=== PATIENT | female | born 1970 | race Caucasian/White ===

== ENCOUNTER → 2021-10-31 01:36 | Outpatient (CLI) | payer OTHER, SELFPAY ==
[2021-10-31 12:30] LABS: Influenza A QL RT-PCR Negative (Negative); Influenza B QL RT-PCR Negative (Negative); SARS-CoV-2 RNA PCR Negative
== END ==
PROVIDERS: PCP Family Medicine; Visit Provider Family Medicine
DX: J02.9 Acute pharyngitis, unspecified (principal); Z20.822 Contact with and (suspected) exposure to COVID-19
CPT/HCPCS: 87502; C9803; U0003; U0005

== ENCOUNTER 2022-06-22 08:38 | Emergency (ER) | payer OTHER, SELFPAY ==
--- NOTE | 2022-06-22 08:48 | ED.FEMALEGU ---
HPI - Female Genitourinary General Chief complaint: Urogenital-Female Stated complaint: UTI Time Seen by Provider: 06/22/22 08:48 Source: patient Mode of arrival: ambulatory Limitations: no limitations History of Present Illness HPI Narrative: Juliette is a 52-year-old female patient presenting to the clinic today with complaints of possible urinary tract infection x 2 days. She reports she is having some burning with urination and a hot feeling in her genital area. She denies any vaginal discharge. She did try to take Monistat off feel 1 day treatment yesterday but this did not help Related Data Home Medications Medication Instructions Recorded Confirmed cyanocobalamin (vitamin B-12) 1,000 mcg PO DAILY 05/28/21 06/22/22 1,000 mcg tablet Allergies Allergy/AdvReac Type Severity Reaction Status Date / Time No Known Allergies AdvReac Unknown Verified 06/22/22 08:39 NKFA Allergy Mild Other Uncoded 06/22/22 08:39 Review of Systems Review of Systems: Pertinent positives per HPI. Patient denies any fever, chills, rash, headache, visual changes, dizziness, cough, runny nose, sore throat, shortness of breath, chest pain, palpitations, nausea, vomiting, diarrhea, constipation, abdominal pain. [facility] Past Medical History Medical History Abnormal fasting glucose (~11/05/16) fasting glucose 106 on 11/05/2016 Acute non-recurrent maxillary sinusitis BMI 31.0-31.9,adult Chronic anxiety Chronic diarrhea chronic diarrhea after gallbladder removed Controlled diabetes mellitus (05/23/21) glucose 138 and hemoglobin A1c 6.7 on 05/23/2021. Glucose 94 with hemoglobin A1c 6.5 on 11/14/2021. COVID-19 (~01/08/21) Encounter for wellness examination in adult Gastro-esophageal reflux disease without esophagitis Mixed hyperlipidemia (~11/05/16) total cholesterol 263, triglycerides 251, HDL 47, LDL 166 on 11/05/2016. Total cholesterol 207, triglycerides 200, HDL 50, LDL 125 on 05/23/2021. Total cholesterol 230, HDL 54, triglycerides 248 and LDL 138 on 11/14/2021. Obesity (BMI 30.0-34.9) OCD (obsessive compulsive disorder) Pharyngitis (~10/28/21) Influenza and COVID negative on 10/31/2021. Umbilical hernia (~2020) small umbilical hernia on the right of midline UTI (urinary tract infection) Vitamin B12 deficiency anemia level low at 325 on 05/23/2021. Low at 340 on 11/14/2021. Vitamin D deficiency, unspecified 28.3 on 11/05/2016 Family History Family History Sibling Diabetes mellitus Patient's brother is in good health Mother Patient's mother is , Onset Age: 43 Carcinoma of colon, Onset Age: 43 Family history of malignant neoplasm of uterus, Onset Age: 43 Father Patient's father is in good health Grandparent Family history of emphysema, Onset Age: 78 Social History Social History Smoking status: Never smoker Alcohol intake: never Substance use: never Substance use type: does not use Comments At the time of my signature, I reviewed and agree with the nursing past medical, surgical, social, and family history. There is no relevant family history pertinent to the patient complaint. Exam Narrative: General: Well-developed, well nourished, in no apparent distress. Head: Normocephalic, atraumatic. Cardio: Regular rate and rhythm, s1 and s2 normal, no murmur appreciated. Resp: Clear to auscultation bilaterally, no rhonchi, rales, wheezing or rubs. Abdomen: Soft, pliable, bowel sounds present in all quadrants, non-tender to palpation, no organomegly, no CVAT tenderness. : Marianna MCINTOSH a bedside external vaginal exam performed- patient has a dry crusted lesion to the right upper labia- mildly tender to touch with mild redness without induration. Course Course Emergency Course: Portions o
[2022-06-22 08:55] VITALS: BP 153/82; PULSE 90; RESP 16; TEMP 37.2; O2SAT 99
== END 2022-06-22 09:19 | disposition home or self-care (01) ==
PROVIDERS: Emergency Provider Nurse Practitioner Family; PCP Family Medicine
DX: R30.0 Dysuria (principal); R81 Glycosuria; R31.9 Hematuria, unspecified; N90.89 Other specified noninflammatory disorders of vulva and perineum; E11.9 Type 2 diabetes mellitus without complications; Z86.16 Personal history of COVID-19; K21.9 Gastro-esophageal reflux disease without esophagitis; E78.2 Mixed hyperlipidemia; E66.9 Obesity, unspecified; Z68.29 Body mass index [BMI] 29.0-29.9, adult; E53.8 Deficiency of other specified B group vitamins; F42.9 Obsessive-compulsive disorder, unspecified; F41.9 Anxiety disorder, unspecified; Z79.84 Long term (current) use of oral hypoglycemic drugs
CPT/HCPCS: 81003; 87086; 87088; 99213; G0463

== ENCOUNTER 2022-08-07 08:06 | Emergency (ER) | payer OTHER, SELFPAY ==
--- NOTE | 2022-08-07 08:18 | ED.FEMALEGU ---
HPI - Female Genitourinary General Chief complaint: Urogenital-Female Stated complaint: UTI Time Seen by Provider: 08/07/22 08:18 Source: patient, RN notes reviewed and old records reviewed Mode of arrival: ambulatory Limitations: no limitations History of Present Illness HPI Narrative: 52-year-old female presents to the [facility] with concerns for a UTI. Patient states that she started with burning, urgency and frequency along with suprapubic pressure last night. Its she did an at-home UTI test and reports that it was positive Denies fevers, abdominal pain. No CVA tenderness MD elicited complaint: UTI Related Data Home Medications Medication Instructions Recorded Confirmed cyanocobalamin (vitamin B-12) 1,000 mcg PO DAILY 05/28/21 08/07/22 1,000 mcg tablet Allergies Allergy/AdvReac Type Severity Reaction Status Date / Time No Known Allergies AdvReac Unknown Verified 08/07/22 08:13 Review of Systems Review of Systems: All systems reviewed & are unremarkable except as noted in HPI and below Constitutional: Constitutional: Reports no additional constitutional complaints Eyes: Eyes: Reports no additional eye complaints ENT: Reports system reviewed and no additional complaints, except as documented Cardiovascular: Cardiovascular: Reports no additional cardiovascular complaints, Denies chest pain and Denies dyspnea Respiratory: Respiratory: Reports no additional respiratory complaints, Denies chest congestion, Denies cough and Denies dyspnea Gastrointestinal: Gastrointestinal: Reports no additional gastrointestinal complaints, Denies abdominal pain, Denies nausea and Denies vomiting Genitourinary: Genitourinary: Reports as per HPI and Reports dysuria Musculoskeletal: Musculoskeletal: Reports no additional musculoskeletal complaints Integumentary/Breasts: Skin/Breast: Reports system reviewed and no additional complaints, except as docu Neurologic: Reports system reviewed and no additional complaints, except as documented Psychiatric: Psychiatric: Reports no additional psychiatric complaints Allergic/Immunologic: Allergic/Immunologic: Reports no additional allergic/immunologic complaints PMFSH Past Medical History Medical History Abnormal fasting glucose (~11/05/16) fasting glucose 106 on 11/05/2016 Acute non-recurrent maxillary sinusitis BMI 31.0-31.9,adult Chronic anxiety Chronic diarrhea chronic diarrhea after gallbladder removed Controlled diabetes mellitus (05/23/21) glucose 138 and hemoglobin A1c 6.7 on 05/23/2021. Glucose 94 with hemoglobin A1c 6.5 on 11/14/2021. COVID-19 (~01/08/21) Encounter for wellness examination in adult Gastro-esophageal reflux disease without esophagitis Mixed hyperlipidemia (~11/05/16) total cholesterol 263, triglycerides 251, HDL 47, LDL 166 on 11/05/2016. Total cholesterol 207, triglycerides 200, HDL 50, LDL 125 on 05/23/2021. Total cholesterol 230, HDL 54, triglycerides 248 and LDL 138 on 11/14/2021. Obesity (BMI 30.0-34.9) OCD (obsessive compulsive disorder) Pharyngitis (~10/28/21) Influenza and COVID negative on 10/31/2021. Umbilical hernia (~2020) small umbilical hernia on the right of midline UTI (urinary tract infection) Vitamin B12 deficiency anemia level low at 325 on 05/23/2021. Low at 340 on 11/14/2021. Vitamin D deficiency, unspecified 28.3 on 11/05/2016 Family History Family History Sibling Diabetes mellitus Patient's brother is in good health Mother Patient's mother is , Onset Age: 43 Carcinoma of colon, Onset Age: 43 Family history of malignant neoplasm of uterus, Onset Age: 43 Father Patient's father is in good health Grandparent Family history of emphysema, Onset Age: 78 Social History Social History Smoking status: Never smoker
[2022-08-07 08:21] VITALS: BP 143/87; PULSE 89; RESP 16; TEMP 36.9; O2SAT 99
== END 2022-08-07 08:44 | disposition home or self-care (01) ==
PROVIDERS: Emergency Provider Nurse Practitioner; PCP Family Medicine
DX: N39.0 Urinary tract infection, site not specified (principal); E11.9 Type 2 diabetes mellitus without complications; K21.9 Gastro-esophageal reflux disease without esophagitis; E78.2 Mixed hyperlipidemia
CPT/HCPCS: 81003; 87077; 87086; 87186; 99213; G0463

== ENCOUNTER 2023-11-24 07:00 | Outpatient (NON) | payer OTHER, SELFPAY | END 2023-11-24 07:01 | disposition home or self-care (01) | LOC: ANHLAB 11-25 08:47 | PROVIDERS: PCP Family Medicine; Visit Provider Internal Medicine Gastroenterology | DX: Z12.11 Encounter for screening for malignant neoplasm of colon (principal) | CPT/HCPCS: 88305 ==

== ENCOUNTER 2023-11-24 07:55 | Day surgery (SDC) | payer OTHER, SELFPAY ==
[2023-11-03 10:18] VITALS: BMI 31.1
--- NOTE | 2023-11-24 08:12 | WPDANESEPP ---
Anes - Eval Pre Procedure Procedure: Operation Date: 11/24/23 09:30 Proposed Procedures p Screening Colonoscopy - Fernando Meredith MD Date/Time: 11/24/23 08:12 Pre Op Diagnosis: Neoplasm Screening Patient Data Age: 53 Gender: F Height: 1.7 m Weight: 91 kg Allergies Allergy/AdvReac Type Severity Reaction Status Date / Time No Known Allergies AdvReac Unknown Verified 11/24/23 08:12 Home Medications Medication Instructions Recorded Confirmed Type cyanocobalamin (vitamin B-12) 1,000 mcg PO DAILY 05/28/21 11/12/23 History 1,000 mcg tablet atorvastatin 10 mg tablet 10 mg PO DAILY #30 tabs 12/23/22 11/12/23 Rx metformin 500 mg tablet,extended 500 mg PO BID #180 tabs 12/23/22 11/12/23 Rx release 24 hr sertraline 100 mg tablet 100 mg PO DAILY #90 tabs 12/24/22 11/12/23 Rx Patient hx anesthesia problems: none Family hx anesthesia problems: none Results Review: All pre-operative results and documents have been reviewed as part of the pre-operative evaluation. [facility] Past Medical History Medical History Abnormal fasting glucose (~11/05/16) fasting glucose 106 on 11/05/2016 Acute non-recurrent maxillary sinusitis BMI 31.0-31.9,adult Breast cancer screening by mammogram normal mammogram 03/29/2023. Chronic anxiety Chronic diarrhea chronic diarrhea after gallbladder removed Controlled diabetes mellitus (05/23/21) glucose 138 and hemoglobin A1c 6.7 on 05/23/2021. Glucose 94 with hemoglobin A1c 6.5 on 11/14/2021. Glucose 120 with hemoglobin A1c 6.3 and microalbumin ratio normal at 3 on 12/17/2022. COVID-19 (~01/08/21) Encounter for wellness examination in adult Gastro-esophageal reflux disease without esophagitis Mixed hyperlipidemia (~11/05/16) total cholesterol 263, triglycerides 251, HDL 47, LDL 166 on 11/05/2016. Total cholesterol 207, triglycerides 200, HDL 50, LDL 125 on 05/23/2021. Total cholesterol 230, HDL 54, triglycerides 248 and LDL 138 on 11/14/2021. total cholesterol 269, HDL 58, triglycerides 294, LDL 166 with ratio 4.6 on 12/17/2022. Obesity (BMI 30.0-34.9) OCD (obsessive compulsive disorder) Pharyngitis (~10/28/21) Influenza and COVID negative on 10/31/2021. Umbilical hernia (~2020) small umbilical hernia on the right of midline UTI (urinary tract infection) Vitamin B12 deficiency anemia level low at 325 on 05/23/2021. Low at 340 on 11/14/2021. Level low at 379 with hemoglobin 14.5 on 12/17/2022. Vitamin D deficiency, unspecified 28.3 on 11/05/2016 Family History Family History Sibling Diabetes mellitus Patient's brother is in good health Mother Patient's mother is , Onset Age: 43 Carcinoma of colon, Onset Age: 43 Family history of malignant neoplasm of uterus, Onset Age: 43 Father Patient's father is in good health Grandparent Family history of emphysema, Onset Age: 78 Social History Social History (Updated 12/23/22 @ 15:21 by Kristina Prado MA) Smoking status: Never smoker Alcohol intake: never Substance use: never Substance use type: does not use Lack of Transportation: No Lack of Food: Never True Current Housing: I Have Housing Concerned About Future Housing: No Difficulty Paying Gas/Electric Bills: No Difficulty Paying for Meds: No Currently Unemployed: No Education: Bachelor's Degree Difficulty w/ Childcare or Family Care: No Living arrangements: with family Exam Day of Procedure 11/24/23 08:12 Patient weight: overweight
[2023-11-24 08:38] LABS: Glucose Point of Care 150 mg/dl (65-105)
--- NOTE | 2023-11-24 08:38 | PM.HPGS ---
History of Present Illness History of Present Illness Consent: Risks, benefits, and alternatives have been discussed and questions answered. Patient agrees to proceed with procedure. Chief complaint: Neoplasm Screening Narrative: Juliette Hancock is a 53 year old female presents for screening colonoscopy. Patient has current weight appetite bowel movements are normal. She attributes this to cholecystectomy. Significant her mother had pelvic tumor that involved the colon. Review of Systems Review of Systems: All systems reviewed & are unremarkable except as noted in HPI and below PMFSH Past Medical History Medical History Abnormal fasting glucose (~11/05/16) fasting glucose 106 on 11/05/2016 Acute non-recurrent maxillary sinusitis BMI 31.0-31.9,adult Breast cancer screening by mammogram normal mammogram 03/29/2023. Chronic anxiety Chronic diarrhea chronic diarrhea after gallbladder removed Controlled diabetes mellitus (05/23/21) glucose 138 and hemoglobin A1c 6.7 on 05/23/2021. Glucose 94 with hemoglobin A1c 6.5 on 11/14/2021. Glucose 120 with hemoglobin A1c 6.3 and microalbumin ratio normal at 3 on 12/17/2022. COVID-19 (~01/08/21) Encounter for wellness examination in adult Gastro-esophageal reflux disease without esophagitis Mixed hyperlipidemia (~11/05/16) total cholesterol 263, triglycerides 251, HDL 47, LDL 166 on 11/05/2016. Total cholesterol 207, triglycerides 200, HDL 50, LDL 125 on 05/23/2021. Total cholesterol 230, HDL 54, triglycerides 248 and LDL 138 on 11/14/2021. total cholesterol 269, HDL 58, triglycerides 294, LDL 166 with ratio 4.6 on 12/17/2022. Obesity (BMI 30.0-34.9) OCD (obsessive compulsive disorder) Pharyngitis (~10/28/21) Influenza and COVID negative on 10/31/2021. Umbilical hernia (~2020) small umbilical hernia on the right of midline UTI (urinary tract infection) Vitamin B12 deficiency anemia level low at 325 on 05/23/2021. Low at 340 on 11/14/2021. Level low at 379 with hemoglobin 14.5 on 12/17/2022. Vitamin D deficiency, unspecified 28.3 on 11/05/2016 Family History Family History Sibling Diabetes mellitus Patient's brother is in good health Mother Patient's mother is , Onset Age: 43 Carcinoma of colon, Onset Age: 43 Family history of malignant neoplasm of uterus, Onset Age: 43 Father Patient's father is in good health Grandparent Family history of emphysema, Onset Age: 78 Social History Social History (Updated 12/23/22 @ 15:21 by Kristina Prado MA) Smoking status: Never smoker Alcohol intake: never Substance use: never Substance use type: does not use Lack of Transportation: No Lack of Food: Never True Current Housing: I Have Housing Concerned About Future Housing: No Difficulty Paying Gas/Electric Bills: No Difficulty Paying for Meds: No Currently Unemployed: No Education: Bachelor's Degree Difficulty w/ Childcare or Family Care: No Living arrangements: with family Meds Home Medications and Allergies Home Medications Medication Instructions Recorded Confirmed Type cyanocobalamin (vitamin B-12) 1,000 mcg PO DAILY 05/28/21 11/12/23 History 1,000 mcg tablet atorvastatin 10 mg tablet 10 mg PO DAILY #30 tabs 12/23/22 11/12/23 Rx metformin 500 mg tablet,extended 500 mg PO BID #180 tabs 12/23/22 11/12/23 Rx release 24 hr sertraline 100 mg tablet 100 mg PO DAILY #90 tabs 12/24/22 11/12/23 Rx Allergies Allergy/AdvReac Type Severity Reaction Status Date / Time No Known Allergies AdvReac Unknown Verified 11/24/23 08:12 Exam Narrative: Physical exam reveals patient signs stable. A is unremarkable. Patient is lungs are clear to auscultation and to percussion. His without murmur or extra sounds. Abdomen bowel sounds are present soft nontender with no organomegaly. [employer]
[2023-11-24] MEDS: LACTATED RINGERS 1,000 ML 150 ML IV CONT (08:42)
[2023-11-24 08:45] VITALS: BP 136/82; PULSE 95; RESP 16; TEMP 36.4; O2SAT 99; BMI 30.8
[2023-11-24 10:00] VITALS: BP 103/76; PULSE 78; RESP 18; O2SAT 96
[2023-11-24 10:10] VITALS: BP 103/76; PULSE 82; RESP 16; O2SAT 100
[2023-11-24 10:20] VITALS: BP 105/82; PULSE 87; RESP 16; O2SAT 100
--- NOTE | 2023-11-24 10:22 | WPDANESPN ---
Anes - Prog Note Post-Op Date/Time: 11/24/23 10:22 Cardiovascular status: normal Respiratory status: normal Airway patency: baseline Mental status: baseline Post-Op hydration status: normal Vital Signs: Last Vital Signs Temp 36.4 C L 11/24/23 08:45 Pulse 78 11/24/23 10:00 Resp 18 11/24/23 10:00 BP 103/76 11/24/23 10:00 Pulse Ox 96 11/24/23 10:00 O2 Del Method Room Air 11/24/23 10:00 Pain Score (VAS): 0/10 I/O: Intake & Output 11/23/23 11/24/23 11/24/23 23:59 07:59 15:59 Intake Total 500 Balance 500 11/24/23 08:34 POC Capillary Glucose 150 H Patient Feedback: Patient satisfied with anesthetic care.
== END 2023-11-24 10:35 | disposition home or self-care (01) ==
PROVIDERS: PCP Family Medicine; Visit Provider Internal Medicine Gastroenterology
PROC: 0DJD8ZZ Inspection of Lower Intestinal Tract, Via Natural or Artificial Opening Endoscopic (ICD-10-PCS; CPT 45378; principal; 2023-11-24 09:30)
DX: Z12.11 Encounter for screening for malignant neoplasm of colon (principal); D12.3 Benign neoplasm of transverse colon; K57.30 Diverticulosis of large intestine without perforation or abscess without bleeding; K64.8 Other hemorrhoids
CPT/HCPCS: 45385

== ENCOUNTER 2025-05-09 08:59 | Outpatient (CLI) | payer OTHER, SELFPAY ==
--- OUTSIDE RECORDS SUMMARY | 2025-05-09 09:22 | XMS_ITS | Clinical Summary ---
Author Organization [facility] [employer] Address [address] [place] [address] Care Team Providers Care Sky Diver Name Role Phone Priyank Galarza MD Primary Care Provider [phone] Source Comments [facility],non-owned Affiliates and Associated Physician Practices is amultiple site organization consisting of ambulatory clinics and hospital sitesin [place], [place], [place] and [place]. This disclosure is being madepursuant to the Care Everywhere program and may not contain all information available regarding this patient. Last updated 18.[facility] [employer] Allergies No known active allergies Medications * Be aware that medications may not be up to date on this document. Alwaysverify current medications with the patient. sertraline (ZOLOFT) 100 MG tablet 8 Active METFORMIN HCL PO Active atorvastatin (Lipitor) 10 MG tablet 4 Active lisinopril (Prinivil; Zestril) 10 MG tablet 4 Active Ozempic, 0.25 or 0.5 MG/DOSE, 2 MG/3ML SOPN INJECT 0.5 MG SUBCUTANEOUS EVERY WEEK 4 Active Active Problems Problem Noted Date Diagnosed Date Chronic anxiety 04/16/2025 Gastro-esophageal reflux disease without esophag itis 04/16/2025 Mixed hyperlipidemia 04/16/2025 Vitamin D deficiency, unspecified 04/16/2025 Vitamin B12 deficiency anemia 04/16/2025 OCD (obsessive compulsive disorder) 04/16/2025 Umbilical hernia 04/16/2025 Screening for malignant neoplasm performed 03/2503/29/2023 Well woman exam with routine gynecological exam 12/21/2017 Encounters Date Type Department Care Team Description 04/16/2025 10:10 AM DIETITIAN Office Visit [facility] [address] [place] [address] Caren Frey, BUY 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-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 Well woman exam with routine gynecological exam (Primary Dx) 04/16/2025 Travel from Last 3 Months Family History Medical History Relation Name Comments Cancer - Lung Maternal Aunt CAD (Coronary Artery Disease) Maternal Grandfather Cancer - Colon Mother thinks had fe male cancer Relation Name Status Comments Father Alive Maternal Aunt Maternal Grandfather Maternal Grandmother Mother Paternal Grandfather Alive Paternal Grandmother Social History Tobacco Use Types Packs/Day Years Used Date Smoking Tobacco: Never Smokeless Tobacco: Never Tobacco Cessation:Counseling Given: Not Answered Alcohol Use Standard Drinks/Week Comments No 0 (1 standard drink = 0.6 oz pur e alcohol) PHQ-2 Answer Date Recorded Patient Health Questionnaire-2 Score 0 04/09/2025 AUDIT-C Answer Date Recorded Q1: How often do you have a drink containing alc ohol? Monthly or less 04/16/2025 Q2: How many drinks containi ng alcohol do you have on a typical day when you are drinking? 1 or 2 04/16/2025 Q3: How often do you have si x or more drinks on one occasion? Never 04/16/2025 Comments No Sex and Gender Information Value Date Recorded Sex Assigned at Not on file Legal Sex Female 7:54 AM DIETITIAN Gender Identity Not on file Sexual Orientation Not on file Last Filed Vital Signs Vital Sign Reading Time Taken Comments Blood Pressure 128/74 04/16/2025 9:44 AM DIETITIAN Pulse 98 08/21/2017 11:08 AM DIETITIAN Temperature 36.8 C (98.3 F) 08/21/2017 11:08 AM DIETITIAN Respiratory Rate 18 10/10/2016 2:47 PM CDT Oxygen Saturation 99% 08/21/2017 11:08 AM DIETITIAN Inhaled Oxygen Concentration - - Weight 89 kg (196 lb 3.2 oz) 04/16/2025 9:44 AM DIETITIAN Height 170.2 cm (5' 7) 04/16/2025 9:44 AM DIETITIAN Body Mass Index 30.73 04/16/2025 9:44 AM DIETITIAN Plan of Treatment Upcoming Encounters Date Type Department Care Team (Late st Contact Info) Description 04/23/2026 10:50 AM DIETITIAN Office Visit [facility] - [facility] [address] [place] [address] Maddie Mendoza MD [address] [place] [address] Health Maintenance Due Date Last Done Comments COLOGUARD (AGES 45-75) - COLON CA SCREENING 1971 COLON MONITORING 1971 COLONOSCOPY - COLON CA SCREENING 1971 CT COLONOGRAPHY - COLON CA SCREENING 1971 Colorectal Cancer Screening 1971 FIT - COLON CA SCREENING 1971 FLEX SIG - COLON CA SCREENING 1971 HIV SCREENING 1986 HEPATITIS C SCREENING 02/01/1989 DTAP/TDAP/TD VACCINES (1 - Tdap) 1990 HEPATITIS B VACCINE (1 of 3 - 19+ 3-dose series) 1990 PNEUMOCOCCAL VACCINE 50+ (1 of 1 - PCV) 2021 ZOSTER VACCINE (1 of 2) 2021 COVID-19 VACCINE (4 - season) 2025 05/14/2021, 08/27/2020, 07/24/2020 INFLUENZA VACCINE (#1) 2025 , 04/08/2019, 04/27/2017 SCREENING FOR DIABETES 04/16/2025 PAP SMEAR 03/29/2026 03/29/2023, 12/12, 12/28/2019, Additional history exists MAMMOGRAM 04/16/2027 04/16/2025, 03/14, 03/25/2022, Additional history exists Cervical Cancer Screening 03/29/2028 PAP with HPV 03/29/2028 03/29/2023, 12/12, 12/28/2019, Additional history exists DEPRESSION SCREENING Completed 04/16/2025, 03/29/20 23 HIB VACCINE Aged Out No longer eligi ble based on patient's age to complete this topic HPV VACCINE Aged Out No longer eligi ble based on patient's age to complete this topic MENINGOCOCCAL (Group B) VACCINE SHARED DECISION-MAKING Aged Out No longer eligible based on patient's age to complete this topic MENINGOCOCCAL GROUPS A/C/Y/W VACCINE Aged Out No longer eligible based on patient's age to complete this topic Procedures Procedure Name Priority Date/Time Associated Diagnosis Comments MAMMOGRAM Routine 04/16/2025 9:11 AM DIETITIAN PAP IMAGE-GUIDED W HPV Routine 03/29/2023 10:06 AM CDT Well woman exam with routine gynecological exam HPV DETECTION HIGH RISK MARLI Routine 03/29/2023 10:06 AM CDT Well woman exam with routine gynecological exam from Last 3 Months or Most Recently Relevant to Health Maintenance Results * MAMMOGRAM (04/16/2025 9:11 AM DIETITIAN) Anatomical Region Laterality Modality Other Caren Frey BUY 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-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 SCANNING ONLY Fin al Result * HPV DETECTION HIGH RISK MARLI (03/29/2023 10:06 AM CDT) High Risk Human Papilloma Result Not detected Not detected 03/31/2023 8:27 AM CDT [facility] High Risk Human Papilloma Interp 03/31/2023 8:27 AM CDT [facility] Comment:High Risk Human Reese lloma Virus was Not Detected. Pathology/Cytolo gy MISCELLANEOUS SAMPLES / Unknown 03/29/2023 10:06 AM CDT 03/30/2023 12:37 PM CDT Narrative [facility] - 03/31/2023 8:27 AM CDT Nucleic acid isolated from the specimen was analyzed with a nucleic acid amplification test (FDA approved Gen-Probe HPV Assay) to detect high risk human papilloma virus (Types: 16, 18, 31, 33, 35, 39, 45, 51, 52, 56, 58, 59, 66, and 68). The reference range is Not Detected. Comment: These test results should not be used as the sole basis for clinical assessment and treatment of patients. These results should always be correlated with other available data (cytology, histology, and clinical information). Caren Frey BUY 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-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 LAB - MICROBIOLOGY ORDERABLES Final Result [facility] [address] [phone] * PAP IMAGE-GUIDED W HPV (03/29/2023 10:06 AM CDT) Case Report Gynecologic Cytology Report Case: [id number] Authorizing Provider: Caren Frey, Collected: 03/29/2023 10:06 AM BUY 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-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 Ordering Location: [facility] - Received: 03/30/2023 12:37 PM [facility] Screen: Homar Smith Specimen: THINPREP - IMAGE GUIDED, Cervix/Endocervix 04/01/2023 1:26 PM CDT [facility] LMP unknown 04/01/2023 1:26 PM CDT [facility] Menstrual Status None Applicable 1:26 PM CDT [facility] Specimen Adequacy Satisfactory for evaluation, endocervical/trans formation zone component absent. 04/01/2023 1:26 PM CDT [facility] Categorization Negative for intraepithelial lesion or malignancy. 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 04/01/2023 1:26 PM CDT [facility] at 1326 CDT Pap Footnote The Pap Smear is a screening test. False positive and false negative results occur. Negative results do not preclude abnormalities, thus clinical correlation is required. This specimen was evaluated by the ThinPrep Imaging System along with an additional manual rescreening by a head esthetician and/or pathologist. 04/01/2023 1:26 PM CDT [facility] Embedded Images 1:26 PM CDT [facility] Pathology/Cytolo gy MISCELLANEOUS SAMPLES / Unknown 03/29/2023 10:06 AM CDT 03/30/2023 12:37 PM CDT Caren Wadsworth Leonienguyễnlarry BUY 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-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 LAB - PATHOLOGY/CYT OLOGY ORDERABLES Final Result Performing Organization Address City/State/[facility] Co de Phone Number [facility] [address] [place] [address], [facility] [phone] from Last 3 Months or Most Recently Relevant to Health Maintenance Insurance CARE * Guarantor: JULIETTE HANCOCK Account Type Relation to Patient Date of Phone Billing Address Personal/Family [address] [place], [place] [id number] [employer] SELF PAY NO INSURANCE Member Subscriber Plan / Payer (Ef fective for All Dates) Name:Karissa Juliette Deonna Member ID:Not on file Relation to Subscriber:Not on file Name:JULIETTE HANCOCK Subscriber ID:Not on file (Home) Address: [address] [place] [phone] Payer ID:Not on file Group ID:Not on file Type:Self Pay Address: [place], [place] * Guarantor: JULIETTE HANCOCK Account Type Relation to Patient Date of Phone Billing Address Personal/Family [address] [place] [phone] [employer] SELF PAY NO INSURANCE Member Subscriber Plan / Payer (Ef fective for All Dates) Name:Juliette [place] Deonna Member ID:Not on file Relation to Subscriber:Not on file Name:JULIETTE HANCOCK Subscriber ID:Not on file (Home) Address: [address] [place] [phone] Payer ID:Not on file Group ID:Not on file Type:Self Pay Address: [place], [place] * Guarantor: JULIETTE HANCOCK Account Type Relation to Patient Date of Phone Billing Address Personal/Family [address] [place] [phone] [facility] SELF PAY NO INSURANCE Member Subscriber Plan / Payer (Ef fective for All Dates) Name:Juliette [place] Member ID:Not on file Relation to Subscriber:Not on file Name:JULIETTE HANCOCK Subscriber ID:Not on file (Home) Address: [address] [place] [phone] Payer ID:Not on file Group ID:Not on file Type:Self Pay Address: [place], [place] Care Teams Sky Diver Relationship Specialty Start Date End Date Priyank Galarza MD PCP - General Family Medicine 05/19/16
[2025-05-09 09:54] LABS: Hematocrit 43.8 % (37.0-47.0); Hemoglobin 14.0 g/dL (12.0-15.0); Immature Granulocyte Percent A 0.3 % (0-0.5); Lymphocytes Absolute Auto 2.55 K/mm3 (0.9-3.2); Mean Corpuscular HGB Conc 32.0 g/dl (32-36); Mean Corpuscular Hemoglobin 28.6 pg (26-34); Mean Corpuscular Volume 89.4 fl (80-100); Nucleated Red Blood Cells Absolute Auto 0.000 K/mm3 (0.0-0.012); Nucleated Red Blood Cells Perc 0.0 % (0.0-0.2); Platelet Count Result 365 k/mm3 (150-375); Red Blood Count 4.90 M/mm3 (4.2-5.4); White Blood Count 6.6 K/mm3 (4.5-10.0)
[2025-05-09 10:00] LABS: Add Urine Microscopic? YES; Appearance Urine Clear (Clear); Glucose Urine UA Trace mg/dL (Negative); Leukocyte Esterase Ur Negative LEU/UL (Negative); Nitrate Urine Negative (Negative); Non Pathogenic Casts 0-2; Specific Grav Ur 1.022 (1.001-1.035)
[2025-05-09 10:35] LABS: MALB Creatinine Ratio 5.7 mg/g (0-30)
[2025-05-09 12:13] LABS: Alanine Aminotransferase 20 U/L (6-35); Albumin Level 4.2 g/dL (3.5-5.1); Alkaline Phosphatase 125 U/L (38-126); Anion Gap 5 mmol/L (4-12); Aspartate Amino Transferase 22 U/L (14-36); Bilirubin,Total 0.4 mg/dL (0.2-1.3); Blood Urea Nitrogen 10 mg/dL (7-17); Calcium 9.1 mg/dL (8.4-10.2); Carbon Dioxide 28 mmol/L (22-30); Chloride 105 mmol/L (98-107); Cholesterol 174 mg/dL (0-200); Estimated Glomerular Filt Rate > 60; Glucose 127 mg/dL (65-110); HDL Direct 48 mg/dL; Potassium 4.2 mmol/L (3.4-5.0); Sodium 138 mmol/L (137-145); Total Protein 7.3 g/dL (6.3-8.2); Triglycerides 165 mg/dL (<150)
[2025-05-09 12:44] LABS: Thyroid Stimulating Hormone 3.180 uIU/mL (0.465-4.680)
[2025-05-10 17:23] LABS: Hemoglobin A1C 6.5 % (<5.7)
[2025-05-11 14:13] LABS: Vitamin B12 728.0 pg/mL (239-931)
== END 2025-05-09 09:00 | disposition home or self-care (01) ==
LOC: ANHLAB 09:00
PROVIDERS: PCP Family Medicine; Visit Provider Family Medicine
DX: E11.9 Type 2 diabetes mellitus without complications (principal); E55.9 Vitamin D deficiency, unspecified; D51.9 Vitamin B12 deficiency anemia, unspecified; E78.2 Mixed hyperlipidemia
CPT/HCPCS: 36415; 80053; 80061; 81001; 82043; 82306; 82607; 83036; 84443; 85025